=== PATIENT | male | born 1985 | race Caucasian/White ===

== ENCOUNTER 2021-01-28 08:32 | Emergency (ER) | payer BC, OTHER ==
[2021-01-28 08:40] VITALS: BP 159/84; PULSE 85; RESP 20; TEMP 97.9
[2021-01-28] MEDS ORDERED: FLUORESCEIN STRIPS 1 MG STRIP BOTH EYES ONE (08:53)
[2021-01-28] MEDS ORDERED: PROPARACAINE 0.5% OPHTH DROPS 15 ML BTL BOTH EYES STA (08:53)
--- NOTE | 2021-01-28 09:07 | ED ---
Eye Problem HPI - General Chief complaint: Eye Problems Stated complaint: Eye injury Time Seen by Provider: 01/28/21 08:48 Source: patient, RN notes reviewed Mode of arrival: ambulatory Limitations: no limitations - History of Present Illness Initial comments: Patient is a 35-year-old male that presents to the emergency department complaining of right eye pain. He notes he was putting up [place] with his kids when he actually took the loading parts of a stapler to the eye. He notes that he does have no change in vision. He notes no pain with extraocular eye movement. Patient notes he came to the emergency room to get evaluated. Patient notes that this feels very similar the last time he took a tennis ball to the eye. He notes he was diagnosed a corneal abrasion at that time. Patient denied any other issues or complaints. He was otherwise well-appearing. He denied any chest pain shortness of breath headache nausea vomiting diarrhea constipation fever fatigue chills blurry vision or change in vision. - Related Data Previous Rx's Medication Instructions Recorded Erythromycin Ophth Oint [Romycin 1 applic RIGHT EYE QID #3.5 gm 01/28/21 Ophth Oint] Allergies Allergy/AdvReac Type Severity Reaction Status Date / Time No Known Allergies Allergy Verified 01/28/21 08:40 Review of Systems ROS Statement: Those systems with pertinent positive or pertinent negative responses have been documented in the HPI. ROS Other: All systems not noted in ROS Statement are negative. Past Medical History Past Medical History: No Reported History History of Any Multi-Drug Resistant Organisms: None Reported Past Surgical History: Appendectomy Past Psychological History: PTSD Smoking Status: Current every day smoker Past Alcohol Use History: Occasional Past Drug Use History: None Reported General Exam Limitations: no limitations General appearance: alert, in no apparent distress Head exam: Present: atraumatic, normocephalic, normal inspection Eye exam: Present: normal appearance, PERRL, EOMI, conjunctival injection (Right eye secondary to irritation). Absent: scleral icterus, periorbital swelling ENT exam: Present: normal exam, mucous membranes moist Neck exam: Present: normal inspection Respiratory exam: Present: normal lung sounds bilaterally. Absent: respiratory distress, wheezes, rales, rhonchi, stridor Cardiovascular Exam: Present: regular rate, normal rhythm, normal heart sounds. Absent: systolic murmur, diastolic murmur, rubs, gallop, clicks Extremities exam: Present: normal inspection, full ROM, normal capillary refill. Absent: tenderness, pedal edema, joint swelling, calf tenderness Neurological exam: Present: alert, oriented X3 Psychiatric exam: Present: normal affect, normal mood Skin exam: Present: warm, dry, intact, normal color. Absent: rash Course Vital Signs 01/28/21 08:37 Temperature 97.9 F Pulse Rate 85 Respiratory 20 Rate Blood Pressure 159/84 O2 Sat by Pulse 99 Oximetry Medical Decision Making - Medical Decision Making 35-year-old male with right eye irritation pain. Eye stain and proparacaine drops ordered. Upon evaluation with Wood's lamp patient does have a right eye corneal abrasion. Visual acuity 20/20 and left, 2040 and right given area of corneal abrasion right over the pupil this is to be expected. Patient will be sent antibiotics pharmacy. Case discussed with Dr. Falk, patient discharge home. Disposition Clinical Impression: Corneal abrasion Disposition: HOME SELF-CARE Condition: Stable Instructions (If sedation given, give patient instructions): Abrasion (ED) Additional Instructions: Please return to the Emergency Department if symptoms worsen or any other concerns. Follow-up with primary care 1-2 days. Follow-up with ophthalmology when convenient. Take and use antibiotic ointment as prescribed. Is patient prescribed a controlled substance at d/c from ED?: No Referrals: None,Stated [Primary Care Provider] - 1-2 days Time of Disposition: 09:06
== END 2021-01-28 09:19 | disposition home or self-care (01) ==
LOC: EC 08:32
DX: S05.01XA Injury of conjunctiva and corneal abrasion without foreign body, right eye, initial encounter (principal); F43.10 Post-traumatic stress disorder, unspecified; F17.200 Nicotine dependence, unspecified, uncomplicated; W31.1XXA Contact with metalworking machines, initial encounter; Z72.89 Other problems related to lifestyle
CPT/HCPCS: 99283